=== PATIENT | female | born 1950 | race Caucasian/White ===

== ENCOUNTER 2016-10-11 08:25 | Day surgery (SDC) | payer MEDICARE, OTHER ==
[~2016-10-11 08:25] MED LIST: Lactated Ringers 1,000 ML IV SCH
[2016-10-11] MEDS ORDERED: Propofol 200 MG/20 ML SDV ONE (09:29)
[2016-10-11 11:26] VITALS: BP 101/47
--- NOTE | 2016-10-11 16:12 | OR ---
PREOPERATIVE DIAGNOSIS: Screening colonoscopy. POSTOPERATIVE DIAGNOSIS: Moderate sigmoid diverticulosis, otherwise normal exam. PROCEDURE DONE: Total flexible colonoscopy. INDICATION: This is a 66-year-old female, who comes in for her first colonoscopic exam for screening purposes. She denies any symptomatology and she has a negative family history. TECHNIQUE: The patient was brought to the endoscopy suite and placed in left lateral decubitus position. She was sedated with propofol per TELEVISION PRESENTER. The flexible video colonoscope was then passed transanally and under visualization advanced to the cecum. Examination revealed a normal ascending, transverse, and descending colon. Sigmoid colon revealed moderate diverticulosis and the rectal mucosa was normal. There was no evidence of any polyps, colitis, or other abnormalities and the scope was then withdrawn. The patient tolerated the procedure well. IMPRESSION: Sigmoid diverticulosis, otherwise normal exam. PLAN: The patient is reassured and I felt she could wait 10 years before she needs a repeat exam. SCM: 10/11/2016 10:49:03 MODL: 10/11/2016 15:48:09 /[id number]
== END 2016-10-11 11:53 | disposition home or self-care (01) ==
LOC: VM.SDS 08:25
PROVIDERS: ATTEND Surgery
DX: Z12.11 Encounter for screening for malignant neoplasm of colon (principal); K57.30 Diverticulosis of large intestine without perforation or abscess without bleeding; F32.9 Major depressive disorder, single episode, unspecified; Z98.890 Other specified postprocedural states; Z79.899 Other long term (current) drug therapy
CPT/HCPCS: G0121; J2704; J7120

== ENCOUNTER 2023-01-11 13:53 | Emergency (ER) | payer MEDICARE, OTHER ==
[2023-01-11] MEDS ORDERED: Sodium Chloride 0.9% 10 ML Syringe FLUSH PRN (14:09)
[2023-01-11 14:20] LABS: BASOPHILS PERCENT AUTO 0.4 % (0.2-1.2); EOSINOPHILS ABSOLUTE AUTO 0.2 x10^3/uL (0.0-0.5); EOSINOPHILS PERCENT AUTO 1.8 % (0.0-4.0); HEMOGLOBIN 12.7 g/dL (12.0-16.0); IMMATURE GRAN ABSOLUTE AUTO 0.01 x10^3/uL (0.00-0.07); LYMPHOCYTES ABSOLUTE AUTO 2.1 x10^3/uL (1.0-4.8); LYMPHOCYTES PERCENT AUTO 25.5 % (25.0-50.0); MEAN CORPUSCULAR HEMOGLOBIN 31.7 pg (26.0-32.0); MEAN CORPUSCULAR HGB CONC 34.3 g/dL (32.0-36.0); MEAN CORPUSCULAR VOLUME 92.3 fL (78.0-93.0); MONOCYTES ABSOLUTE AUTO 0.5 x10^3/uL (0.0-0.8); MONOCYTES PERCENT AUTO 5.9 % (2.0-11.0); NEUTROPHILS ABSOLUTE AUTO 5.4 x10^3/uL (1.8-7.7); NEUTROPHILS PERCENT AUTO 66.3 % (50.0-80.0); PLATELET COUNT,PLT 226 x10^3/uL (130-400); RED BLOOD CELL COUNT 4.01 x10^6/uL (4.00-5.50); WHITE BLOOD CELL COUNT,WBC 8.2 x10^3/uL (4.0-10.0)
[2023-01-11] MEDS: Ondansetron 4 MG/2 ML SDV IVPUSH ONE (14:22)
[2023-01-11] MEDS: HYDROmorphone 0.5 MG/0.5 ML Syringe IVPUSH ONE (14:22)
[2023-01-11] MEDS: Sodium Chloride 0.9% 1,000 ML IV SCH (14:22)
[2023-01-11] MEDS: Ketorolac 15 MG/ML SDV IVPUSH ONE (14:22)
[2023-01-11 14:24] LABS: BILIRUBIN,URINE NEGATIVE (NEGATIVE); COLOR,URINE YELLOW (YELLOW); GLUCOSE,URINE NEGATIVE (NEGATIVE); KETONES,URINE NEGATIVE (NEGATIVE); LEUKOCYTE ESTERASE,URINE TRACE (NEGATIVE); NITRITE,URINE NEGATIVE (NEGATIVE); OCCULT BLOOD,URINE TRACE-INTACT (NEGATIVE); PROTEIN,URINE NEGATIVE (NEGATIVE); UROBILINOGEN,URINE 0.2 EU/dL (0.2)
[2023-01-11 14:31] LABS: APPEARANCE,URINE SLIGHTLY CLOUDY (CLEAR); RBC,URINE 0-5 /HPF (NOT SEEN); SQUAMOUS EPITHELIAL CELLS,UR OCCASIONAL /HPF (NOT SEEN); WBC,URINE 0-5 /HPF (NOT SEEN)
[2023-01-11 14:32] LABS: BACTERIA,URINE RARE /HPF (NOT SEEN)
[2023-01-11 14:33] LABS: AMORPHOUS SEDIMENT,URINE OCCASIONAL
[2023-01-11 14:41] LABS: A/G RATIO 1.46; ALANINE AMINOTRANSFERASE,ALT 22 U/L (14-59); ALBUMIN 3.8 g/dL (3.4-5.0); ALKALINE PHOSPHATASE 55 U/L (46-116); ASPARTATE AMNIOTRANSFERASE,AST 17 U/L (15-37); BILIRUBIN TOTAL 0.3 mg/dL (0.2-1.0); BLOOD UREA NITROGEN,BUN 23 mg/dL (7-18); CALCIUM 8.5 mg/dL (8.5-10.1); CARBON DIOXIDE,CO2 29 mmol/L (21-32); CHLORIDE,CL 105 mmol/L (98-107); CREATININE 0.9 mg/dL (0.55-1.02); GLUCOSE RANDOM 122 mg/dL (70-99); POTASSIUM,K 4.1 mmol/L (3.5-5.1); PROTEIN TOTAL,TP 6.4 g/dL (6.4-8.2); SODIUM,NA 142 mmol/L (136-145)
[2023-01-11 14:42] LABS: ANION GAP 12.1 mmol/L (5-15); ESTIMATED GFR 68 mL/min (>=60)
[2023-01-11] MEDS: Tamsulosin 0.4 MG Cap.ER PO ONE (15:40)
[2023-01-11 16:11] VITALS: BP 132/68; PULSE 70
== END 2023-01-11 15:50 | disposition home or self-care (01) ==
LOC: VM.ED 13:53
DX: N20.0 Calculus of kidney (principal)
CPT/HCPCS: 74176; 80053; 81001; 85025; 87086; 96361; 96374; 96375; 99284-25; A9270-GY; J1170; J1885; J2405; J7030

== ENCOUNTER 2023-12-28 18:28 | Emergency (ER) | payer MEDICARE, OTHER ==
[2023-12-28] MEDS: Lidocaine 1% 10 ML MDV INFILT ONE (19:04)
[2023-12-28] MEDS: Cephalexin 500 MG Cap PO ONE (19:04)
[2023-12-28] MEDS: Bupivacaine 0.5% 30 ML SDV INFILT SCH (19:04)
[2023-12-28 19:09] VITALS: BP 173/86; PULSE 82
== END 2023-12-28 20:40 | disposition home or self-care (01) ==
LOC: VM.ED 18:28
DX: S62.637A Displaced fracture of distal phalanx of left little finger, initial encounter for closed fracture (principal); S61.217A Laceration without foreign body of left little finger without damage to nail, initial encounter; Z79.899 Other long term (current) drug therapy; W26.8XXA Contact with other sharp object(s), not elsewhere classified, initial encounter
CPT/HCPCS: 12001; 73140; 99283; A9270; J0665; J3490

== ENCOUNTER 2024-12-09 08:23 | Day surgery (SDC) | payer MEDICARE, OTHER ==
[~2024-12-09 08:23] MED LIST changes: +Brimonidine 0.2% Ophth Soln 5 ML Bottle ONE; +Dexamethasone/Neomycin/Polymyxin B Ophth Oint 3.5 GM Tube ONE; -Lactated Ringers 1,000 ML IV SCH; +Lidocaine 1% 2 ML ONE; +Phenyleprhine/Ketorolac 4 ML Vial ONE; +Povidone-Iodine 5% Sterile Ophth Soln 30 ML Bottle ONE; +Proparacaine 0.5% Ophth Soln 15 ML Bottle ONE
[2024-12-09] MEDS: Tropicamide 1% Ophth Soln 15 ML Bottle EYERT SCH (08:29)
[2024-12-09] MEDS: Cyclopentolate 1% Opth Soln 2 ML Bottle EYERT SCH (08:29)
[2024-12-09] MEDS: Phenylephrine 2.5% Ophth Soln 2 ML Bot EYERT SCH (08:29)
[2024-12-09] MEDS: Moxifloxacin 0.5% Ophth Soln 3 ML Bottle EYERT ONE ×2 (08:52→09:57)
[2024-12-09] MEDS ORDERED: Midazolam 1 MG/ML 2 ML SDV ONE (09:31)
[2024-12-09] MEDS ORDERED: fentaNYL 100 MCG/2 ML SDV ONE (09:31)
[2024-12-09] MEDS ORDERED: ceFAZolin 500 MG Vial ONE (09:50)
[2024-12-09] MEDS: Povidone-Iodine 5% Sterile Ophth Soln 30 ML Bottle EYERT ONE (09:54)
[2024-12-09] MEDS: Phenyleprhine/Ketorolac 4 ML Vial IO ONE (09:57)
[2024-12-09] MEDS: Balanced Salt Solution Ophth Irrig 500 ML Bottle IOCULAR ONE (09:57)
[2024-12-09] MEDS: Lidocaine 1% PF 2 ML SDV INFILT ONE (09:57)
[2024-12-09] MEDS: Dexamethasone/Neomycin/Polymyxin B Ophth Oint 3.5 GM Tube EYERT ONE (09:58)
[2024-12-09] MEDS: Chondroitin Sulfate/Hyaluronate Sodium Ophth Inj 0.5 ML Syringe IOCULAR ONE (09:58)
[2024-12-09] MEDS: Brimonidine 0.2% Ophth Soln 5 ML Bottle EYERT ONE (09:58)
[2024-12-09] MEDS: acetaZOLAMIDE 500 MG Cap.ER PO ONE (10:18)
[2024-12-09 10:21] VITALS: PULSE 63
[2024-12-09 10:29] VITALS: BP 116/58
== END 2024-12-09 10:55 | disposition home or self-care (01) ==
LOC: VM.SDS 08:23
PROVIDERS: ATTEND Ophthalmology
DX: H25.813 Combined forms of age-related cataract, bilateral (principal); H61.23 Impacted cerumen, bilateral; F32.A Depression, unspecified; Z79.899 Other long term (current) drug therapy
CPT/HCPCS: 00142; 99100; A9270-GY; J0690; J1097; J2003; J2250; J3010; J3490; V2632

== ENCOUNTER 2025-01-13 06:45 | Day surgery (SDC) | payer MEDICARE, OTHER ==
[~2025-01-13 06:45] MED LIST changes: -Brimonidine 0.2% Ophth Soln 5 ML Bottle ONE; -Proparacaine 0.5% Ophth Soln 15 ML Bottle ONE
[2025-01-13] MEDS: Cyclopentolate 1% Opth Soln 2 ML Bottle EYELF SCH (06:53)
[2025-01-13] MEDS: Moxifloxacin 0.5% Ophth Soln 3 ML Bottle EYELF ONE ×2 (07:15→08:23)
[2025-01-13] MEDS ORDERED: Midazolam 1 MG/ML 2 ML SDV ONE (07:44)
[2025-01-13] MEDS ORDERED: fentaNYL 100 MCG/2 ML SDV ONE (07:44)
[2025-01-13] MEDS: Povidone-Iodine 5% Sterile Ophth Soln 30 ML Bottle EYELF ONE (08:23)
[2025-01-13] MEDS: Lidocaine 1% PF 2 ML SDV INFILT ONE (08:23)
[2025-01-13] MEDS: Balanced Salt Solution Ophth Irrig 500 ML Bottle IOCULAR ONE (08:23)
[2025-01-13] MEDS: Phenyleprhine/Ketorolac 4 ML Vial IO ONE (08:23)
[2025-01-13] MEDS: Dexamethasone/Neomycin/Polymyxin B Ophth Oint 3.5 GM Tube EYELF ONE (08:24)
[2025-01-13] MEDS: Chondroitin Sulfate/Hyaluronate Sodium Ophth Inj 0.5 ML Syringe IOCULAR ONE (08:24)
[2025-01-13] MEDS: acetaZOLAMIDE 500 MG Cap.ER PO ONE (08:41)
[2025-01-13 08:43] VITALS: BP 116/64; PULSE 70
== END 2025-01-13 09:00 | disposition home or self-care (01) ==
LOC: VM.SDS 06:45
PROVIDERS: ATTEND Ophthalmology
DX: H25.813 Combined forms of age-related cataract, bilateral (principal); F17.210 Nicotine dependence, cigarettes, uncomplicated; Z79.82 Long term (current) use of aspirin; Z79.899 Other long term (current) drug therapy
CPT/HCPCS: 00142; 99100; A9270-GY; J1097; J2003; J2250; J3010; J3490; V2632